=== PATIENT | male | born 1945 ===

== ENCOUNTER 2022-02-16 09:45 | Inpatient (IN) | payer OTHER ==
[~2022-02-16] VITALS: Ht 172.7 cm; Wt 81.6 kg
[2022-02-16] MEDS ORDERED: AVAPRO300 MG PO (11:59)
[2022-02-16] MEDS ORDERED: NORVASC5 MG PO (12:00)
[2022-02-24] MEDS ORDERED: PERCOCET 5-3251 EACH PO (15:52)
[2022-02-24] MEDS ORDERED: DUI500 PO (15:52)
[2022-02-24] MEDS ORDERED: ELIQUIS2.5 MG PO (15:52)
== END 2022-02-24 23:51 | disposition home or self-care (01) | DRG 470 ==
LOC: SURH 02-21 07:08 → O/R 02-21 07:08 → SURH 02-21 09:45
PROVIDERS: ADMIT Orthopaedic Surgery; ATTEND Orthopaedic Surgery
PROC: 0SRC0J9 Replacement of Right Knee Joint with Synthetic Substitute, Cemented, Open Approach (ICD-10-PCS; principal; 2022-02-21 16:30)
DX: M17.11 Unilateral primary osteoarthritis, right knee (principal); D62 Acute posthemorrhagic anemia; M22.11 Recurrent subluxation of patella, right knee; M81.0 Age-related osteoporosis without current pathological fracture; I10 Essential (primary) hypertension; Z20.822 Contact with and (suspected) exposure to COVID-19